=== PATIENT | male | born 1955 | race African-American/Black ===

== ENCOUNTER 2018-01-20 23:54 | Emergency (ER) | payer SELFPAY ==
[2018-01-20 23:55] VITALS: BP 145/106; PULSE 115; RESP 14; TEMP 37.3; O2SAT 95; BMI 21.7
--- NOTE | 2018-01-21 00:05 | ED.DCSUM_ITS ---
- ER Visit Summary Date of Service: 01/21/18 Chief Complaint: Nausea, vomiting History of Present Illness: The patient is a 63 M with no significant medical history presents to the emergency department nausea and vomiting. Significant other was sick with similar symptoms a few days ago. His symptoms started about 3 hours prior to arrival. He states he had some diffuse cramping abdominal pain. Since then, he has had multiple episodes of emesis. There has been no blood in the emesis. He denies any diarrhea. He does admit to some abdominal cramping. He has no history of prior abdominal surgery. The patient takes no daily medications. He denies any fevers or chills. He has not found anything that improves the symptoms. Physical Examination: Vital signs reviewed General: Well-nourished, well-developed Head: Normocephalic, atraumatic Eyes: Pupils equal and reactive, extraocular muscles intact Neck, supple, no lymphadenopathy Heart: Regular rate and rhythm Respiratory: No distress, clear bilaterally Abdomen: Soft, diffusely tender without rebound or guarding, nondistended, no peritoneal signs Back: Nontender Extremities: Nontender, no edema, no cords Skin: Normal color no rash Neuro: Alert and oriented, no focal or lateralizing deficits Test Results: [] Emergency Department Course and Treatment: The patient did have positive sick contacts. He had some diffuse tenderness, but no focal tenderness to palpation. IV was established. Patient was given fluids, analgesics, and antiemetics. He had marked improvement of his symptoms. His repeat exam was soft and nontender. His labs do show mild leukocytosis which I feel is likely reactive. With fluids and medications again his symptoms have resolved. The patient is tolerating oral fluids without issue. The patient will be discharged with Zofran. He was counseled on concerning symptoms and reasons to return. The patient has no primary care physician. He will be referred to next primary care on-call, Dr. Zayas. Treatment Plan: [] Disposition: Discharge Impression:. Nausea and vomiting This note was generated with [employer] dictation software. It may contain incorrect words, spelling, and punctuation that were not noted in review of the chart prior to signing ED Disposition - Plan for ED Patient: Chief Complaint: Nausea/Vomiting Instructions: ED Nausea Vomiting Prescriptions: Ondansetron [Zofran Odt] 4 mg PO Q8H PRN PRN #10 tab PRN Reason: Nausea Referrals: Anselmo Zayas MD [STAFF PHYSICIAN] -
[2018-01-21] MEDS: 0.9% Normal Saline 1,000 ML 1000 ML IV (00:06)
[2018-01-21] MEDS: Ondansetron 4 MG/2 ML Vial IV (00:09)
[2018-01-21 00:16] LABS: Absolute Lymphocyte Count 1.02 X10^3/ul (0.83-4.51); Absolute Neutrophil Count 9.9 X10^3/uL (2.0-7.7); Basophil# 0.01 X10^3/uL; Basophil% 0.1 % (0-1); Eosinophil# 0.01 X10^3/uL; Eosinophils% 0.1 % (0-5); Hematocrit 48.3 % (40-54); Hemoglobin 15.5 g/dl (13.0-16.5); Lymphocyte # 1.02 X10^3/ul (4.0); Lymphocyte % 8.9 % (19-41); Mean Corp Hgb Conc 32.1 g/gl (32-36); Mean Corpuscular Hgb 30.5 pg (27.0-32.0); Mean Corpuscular Volume 95.1 fL (80-94); Mean Platelet Vol. 11.5 fl (6.2-12.0); Monocyte# 0.48 X10^3/uL; Monocyte% 4.2 % (0-10); Neutrophil # 9.94 X10^3/uL (2.7-7.7); Neutrophil % 86.4 % (47-70); Platelet Count 143 K/mm3 (150-450); Red Blood Count 5.08 M/mm3 (4.6-6.2); White Blood Count 11.5 K/mm3 (4.4-11.0)
[2018-01-21 00:20] LABS: POSITIVE COUNT NO; POSITIVE DIFFERENTIAL NO; POSITIVE MORPHOLOGY NO
[2018-01-21 01:11] LABS: ALB/GLOB Ratio 0.9 RATIO (0.9-2.4); AST(SGOT) 22 U/L (15-37); Alanine Aminotransfer ALT/SGPT 22 U/L (16-61); Albumin, Serum 3.8 g/dL (3.2-5.0); Alkaline Phosphatase 60 U/L (45-117); Anion Gap 7 (5-15); BUN 15 mg/dL (7-18); BUN/Creat Ratio 13.4 RATIO (10-20); Chloride 103 mmol/L (98-107); Creatinine, Serum 1.12 mg/dL (0.70-1.30); EST Glomerular Filtration Rate 71 mL/min (>60); Est Glom Filt Rate - Afr Amer 85 mL/min (>60); Estimated Creatinine Clearance 59.23 ml/min; Globulin 4.1 g/dL (2.2-4.2); Glucose 168 mg/dL (74-106); Lipase 66 U/L (73-393); Potassium 4.2 mmol/L (3.5-5.1); Protein, Total 7.9 g/dL (6.4-8.2); Sodium Level 137 mmol/L (136-145)
[2018-01-21] MEDS: Ondansetron ODT 4 MG Tablet PO (01:52)
[2018-01-21 01:53] VITALS: BP 138/94; PULSE 98; RESP 16; O2SAT 95
== END 2018-01-21 01:54 | disposition home or self-care (01) ==
LOC: ED 01-21 00:15
PROVIDERS: Emergency Provider Emergency Medicine
DX: K52.9 Noninfective gastroenteritis and colitis, unspecified (principal); Z72.0 Tobacco use
CPT/HCPCS: 80053; 83690; 85025; 96361; 96374; 96375; 99283; J7030; A4216; J2405

== ENCOUNTER 2023-08-16 21:42 | Emergency (ER) | payer MEDICARE, MEDICAID, SELFPAY ==
[2023-08-16 21:43] VITALS: BP 165/75; PULSE 103; RESP 18; TEMP 36.1; O2SAT 97
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
[2023-08-16] MEDS: Ibuprofen 600 MG Tablet PO (22:09)
[2023-08-16 22:12] VITALS: BMI 26.6
== END 2023-08-16 22:31 | disposition home or self-care (01) ==
PROVIDERS: Emergency Provider Emergency Medicine; PCP Family Medicine; Visit Provider Emergency Medicine
DX: S00.511A Abrasion of lip, initial encounter (principal); S43.52XA Sprain of left acromioclavicular joint, initial encounter; F17.200 Nicotine dependence, unspecified, uncomplicated; V03.10XA Pedestrian on foot injured in collision with car, pick-up truck or van in traffic accident, initial encounter
CPT/HCPCS: 99283

== ENCOUNTER 2023-08-19 09:20 | Emergency (ER) | payer MEDICARE, SELFPAY ==
[2023-08-19 09:21] VITALS: BP 197/99; PULSE 61; RESP 20; TEMP 35.9; O2SAT 100; BMI 22.0
--- NOTE | 2023-08-19 10:07 | RAD_ITS ---
STUDY: X-RAY - RIGHT FOOT CLINICAL: Male, 68 years old. Pain following injury. TECHNIQUE: 3 view(s) of the foot. COMPARISON: None. FINDINGS: Normal talus, calcaneus, and tarsal bones. Normal visualized subtalar, talonavicular, calcaneocuboid, tarsal and tarsometatarsal articulations. Normal metatarsi. There is degenerative arthrosis of the metatarsophalangeal joint of the hallux . Normal tibial and fibular sesamoid bones. Normal interphalangeal joint of the great toe. Normal phalanges of the great toe. Normal second through fifth metatarsophalangeal joints. Normal interphalangeal joints and phalanges of the lesser toes. The soft tissue structures are unremarkable. 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 Electronically Signed: Rico Jean MD at 10:53 EDT ,
--- NOTE | 2023-08-19 10:07 | RAD_ITS ---
STUDY: X-RAY - LEFT FOOT CLINICAL: Male, 68 years old. Pain following injury. TECHNIQUE: 3 view(s) of the foot. COMPARISON: None. FINDINGS: There is a plantar calcaneal spur. Normal visualized subtalar, talonavicular, calcaneocuboid, tarsal and tarsometatarsal articulations. Normal metatarsi. Normal metatarsophalangeal joint of the great toe. Normal tibial and fibular sesamoid bones. Normal interphalangeal joint of the great toe. Normal phalanges of the great toe. Normal second through fifth metatarsophalangeal joints. Normal interphalangeal joints and phalanges of the lesser toes. Soft tissue swelling. RAD/Foot min 3 Views IMPRESSION: Soft tissue swelling. Electronically Signed: Rico Jean MD at 10:52 EDT ,
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
[2023-08-19 11:43] VITALS: BP 138/77; PULSE 68; RESP 15; O2SAT 98
== END 2023-08-19 11:44 | disposition home or self-care (01) ==
PROVIDERS: Emergency Provider Emergency Medicine; PCP Family Medicine; Visit Provider Emergency Medicine
DX: S90.31XA Contusion of right foot, initial encounter (principal); S90.32XA Contusion of left foot, initial encounter; F17.210 Nicotine dependence, cigarettes, uncomplicated; M19.071 Primary osteoarthritis, right ankle and foot; M19.072 Primary osteoarthritis, left ankle and foot; V89.2XXA Person injured in unspecified motor-vehicle accident, traffic, initial encounter
CPT/HCPCS: 73630; 99282

== ENCOUNTER 2024-11-11 18:55 | Emergency (ER) | payer MEDICARE, SELFPAY ==
[2024-11-11 18:57] VITALS: PULSE 68; RESP 16; TEMP 35.8; O2SAT 98; BMI 23.2
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
--- NOTE | 2024-11-11 19:24 | EDS_ITS ---
HPI HPI - Fall History of Present Illness Chief Complaint: Confusion Informant: patient Occured/Mechanism Occurred: Today Mechanism/Context: Yes same level fall Usually ambulates: Without assistance Pain/Injury Pain Location: head Current Severity: Moderate Maximum Severity: Moderate Narrative Narrative: 69-year-old male reportedly no significant past medical or surgical history. Most of the history is from his baby nena which she calls her self. I believe the patient is to another woman and has a is not here. Reportedly patient was drinking today. He had reportedly 4 shots and 3 beers. The woman is with him states she walked outside when she came in he was on the floor. Reportedly people there stated that he fell hit his head. Unsure if he had loss conscious. There was no bleeding. He is reportedly not on no medications is no past medical history. He was brought in by squad and in the squad he threw up. He denies any complaints. He is intoxicated. Patient himself is a limited informant. Prior similar symptoms: No Recent Illness/Hospitalization: No PFSH PFSH Medical History no medical history no medical history Allergy/AdvReac Type Severity Reaction Status Date / Time No Known Allergies Allergy Verified 11/11/24 18:56 Social History Smoking Status: Current every day smoker tobacco type: cigarettes ROS ROS ED ROS Narrative Denies recent illness. Nausea and vomiting night after fall with head injury. Constitutional Constitutional ED: Denies chills or fever(s) Eyes Eyes: Denies blurry vision ENT ENT ED: Denies ear pain Cardiovascular Cardiovascular: Denies chest pain Respiratory/Chest Respiratory/Chest: Denies cough Gastrointestinal Gastrointestinal: Reports nausea and vomiting; Denies abdominal pain Genitourinary Genitourinary ED: Denies dysuria or hematuria Musculoskeletal Musculoskeletal: Denies arthralgias Integumentary Denies abscess Neurologic Neurologic: Denies headache(s) Psychiatric Psychiatric: Denies anxiety Endocrine Endocrinology: Denies polydipsia Hematologic/Lymphatic Hematologic/Lymphatic: Denies easy bleeding Allergic/Immunologic Allergic/Immunologic ED: Denies mouth swelling EXAM Physical Exam Narrative Exam Narrative: 69-year-old male sitting upright in bed. Vital signs are stable he is afebrile. There is a woman at bedside. He is in no distress. He seems intoxicated. H EENT exam pupils round reactive light. Very poor dentition but no acute trauma to his dentition. There is no obvious bruising or swelling to his face. There is no bruising, hematoma or laceration to his scalp. C-spine is nontender. Trachea midline. Lungs clear to auscultation bilaterally. Heart regular rhythm rate about 70 no murmur. Chest wall ribs are nontender. No crepitus. No br uising. Abdomen is soft nondistended. Normal bowel sounds no peritoneal signs. No bruising. Pelvic girdle is intact. He is moving all 4 extremities. 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 Normal dorsi plantarflexion. There is no deformity. No joint tenderness. Neurologically is intoxicated. But he does answer questions he knows he is in the emergency department. Const Vital Signs: 11/11/24 18:57 11/11/24 19:05 11/11/24 19:56 Temperature 96.5 F L Temperature Source Temporal Pulse Rate 68 74 Respiratory Rate 16 16 Respiratory Effort Normal Non-Labored Respiratory Depth Normal Respiratory Pattern Normal Blood Pressure 106/66 Blood Pressure Mean 79 Pulse Ox 98 98 Oxygen Delivery Method Room Air Room Air Room Air Positive well nourished and well developed; Negative for obese, cachectic or contractures General Appearance ED: well developed and NAD; Negative for cachectic or contractures Nutritional Appearance: Negative for cachectic or obese HEENT Reports normocephalic HEENT Narrative: Reported head trauma but no hematoma or laceration. No swelling or bruising. Negative for contusion, hematoma or tenderness Eyes PERRL and EOMs intact bilaterally General Eye ED: Negative for pale conjunctiva or scleral icterus Neck full ROM, no lymphadenopathy and supple General: Negative for tenderness Chest Wall inspection of chest normal and palpation of chest normal Resp normal respiratory effort, no retractions and clear to auscultation bilaterally Auscultation: Negative for rales, rhonchi, wheezes or diminished lung sounds Cardio regular rate, regular rhythm, S1 normal heart sound, S2 normal heart sound and no murmurs GI non-tender, non-distended and no masses Palpation: soft; Negative for guarding or rebound tenderness present Back/Spine no CVA tenderness General Back: Negative for CVA tenderness Cervical Spine: Negative for cervical spine tenderness Lumbar Spine / Lower Back: Negative for lumbar spinal tenderness or paraspinal muscle tenderness Neuro CN's II-XII intact bilaterally, moves all extremities and no focal motor deficits Neuro Narrative: Intoxicated. Knows he is in the ER. Limited informant. Anaid Coma Scale: document GCS findings To Voice Obeys Commands Oriented 14 Sensorium / Orientation: alert, oriented to person and oriented to place Motor Exam: strength 5/5 throughout Psych mental status grossly normal and thought process normal Attitude: No agitated Mood & Affect: Negative for anxious or tearful Skin Lesions: no lesions Rashes: no rashes Trauma: Negative for abrasion, laceration or puncture MDM MDM MDM Narrative Medical decision making narrative: 69-year-old male reportedly no past medical history nor is he on any medications. Reportedly has been drinking today and fell on a bar hitting his head on the floor. CT of his head and neck will be obtained. Screening labs and alcohol level. He will be given IV Zofran. Currently is awake and alert. He is answering questions. Following commands. There is no signs of trauma to his chest, abdomen, back arms or legs. Prior to patient being discharged around 8:50 PM. He tore out his IV. He and his significant other that was with him walked out. Nurses were able to eat him to come back and I went over his test results with him. And then he walked out. He did not wait for his discharge instructions. The woman it was with him said that he would be able to watch over in the night. The understanding is significantly intoxicated. History & Record Review Discussion w/independent historian: Patient and Friend Additional record(s) reviewed:: Prior inpatient record, Prior outpatient record, Prior ED visit and Prior labs Lab Data Attestation: I reviewed the patient's lab results. Lab results narrative: CBC shows white count of 6. H&H 11.4 and 35.6. Platelets 124. Electrolytes show potassium of 3.1. Gap 10. Normal BUN of 16 creatinine 0.7. Glucose 107. His alcohol level was 316. Labs: Laboratory Results - last 24 hr 11/11/24 19:26 WBC 6.0 RBC 3.63 L Hgb 11.4 L Hct 35.6 L MCV 98.1 H MCH 31.4 MCHC 32.0 RDW Std Deviation 51.6 H RDW Coeff of Daren 14.4 Plt Count 124 L MPV 10.3 Immature Gran % (Auto) 0.300 Neut % (Auto) 53.7 Lymph % (Auto) 31.0 [place] % (Auto) 11.2 H Eos % (Auto) 3.5 Baso % (Auto) 0.3 Absolute Neuts (auto) 3.2 Absolute Lymphs (auto) 1.85 Nucleated RBC % 0 Sodium 139 Potassium 3.1 L Chloride 107 Carbon Dioxide 22.0 Anion Gap 10 BUN 16 Creatinine 0.74 Estim Creat Clear Calc 74.00 Est GFR (MDRD) Af Amer 134 Est GFR (MDRD) Non-Af 111 BUN/Creatinine Ratio 21.5 H Glucose 107 H Calcium 8.7 Ethyl Alcohol 316.0 H* Radiography Diagnostic Testing: Clinical Impression(s) from Imaging Studies Brain CT 11/11/24 19:15 IMPRESSION: No acute intracranial pathology of the brain. Paranasal sinus disease. Electronically Signed: Nelson Morrissey DO at 20:14 EST , Cervical Spine CT 11/11/24 19:16 IMPRESSION: Degenerative changes of the cervical spine. Electronically Signed: Nelson Morrissey DO at 20:22 EST , Discharge Plan Triage Chief Complaint: Confusion Other Complaint: ETOH Intox Fall ED Provider: Lee Muir Dx/Rx/DC Orders Clinical Impression: Fall, Closed head injury, Acute alcohol intoxication Instructions: ED Alcohol Intoxication, ED Head Injury (Adult) Primary Care Provider: Austen Jean Referrals: Austen Jean MD [Primary Care Provider] - 3-5 Days if not improving Activity Restrictions/Additional Instructions: Ice all sore areas. No alcohol next 24 hours. Strongly consider alcohol counseling or detox. Follow-up with your doctor if not improving or feeling worse. Or return. No driving next 24 hours Print Language: Italian Disposition Disposition: Home, Self Care
[2024-11-11 19:34] LABS: Absolute Lymphocyte Count 1.85 X10^3/uL (0.83-4.51); Absolute Neutrophil Count 3.2 X10^3/uL (2.0-7.7); Basophil# 0.02 X10^3/uL; Basophil% 0.3 % (0-1); Eosinophil# 0.21 X10^3/uL; Eosinophils% 3.5 % (0-5); Hematocrit 35.6 % (40-54); Hemoglobin 11.4 g/dL (13.0-16.5); Lymphocyte # 1.85 X10^3/ul (0.83-4.51); Mean Corpuscular Hgb 31.4 pg (27.0-32.0); Mean Corpuscular Volume 98.1 fL (80-94); Mean Platelet Vol. 10.3 fl (6.2-12.0); Monocyte# 0.67 X10^3/uL; Monocyte% 11.2 % (0-10); NRBC Flagged by Analyzer 0 % (0-5); Neutrophil # 3.19 X10^3/uL (2.7-7.7); Neutrophil % 53.7 % (47-70); Platelet Count 124 K/mm3 (150-450); RBC Distribution Width CV 14.4 % (11.6-14.6); RBC Distribution Width SD 51.6 fl (35.1-43.9); Red Blood Count 3.63 M/mm3 (4.6-6.2)
[2024-11-11 19:48] LABS: Anion Gap 10 (5-15); BUN 16 mg/dL (7-18); BUN/Creat Ratio 21.5 RATIO (10-20); Calcium,Total 8.7 mg/dL (8.5-10.1); Chloride 107 mmol/L (98-107); Creatinine, Serum 0.74 mg/dL (0.70-1.30); EST Glomerular Filtration Rate 111 mL/min (>60); Est Glom Filt Rate - Afr Amer 134 mL/min (>60); Glucose 107 mg/dL (74-106); Potassium 3.1 mmol/L (3.5-5.1); Sodium Level 139 mmol/L (136-145)
[2024-11-11 19:56] VITALS: BP 106/66; PULSE 74; RESP 16; O2SAT 98
[2024-11-11] MEDS: Ondansetron 4 MG/2 ML Vial IV (19:59)
--- NOTE | 2024-11-11 20:53 | ED.RN ---
pts room noted to be empty when this rn came back from lunch. pt noted to be leaning against the wall outside of squad entrance. pts arm checked for IV. IV noted to be on the side of the bed. pt left without receiving dc instructions.
== END 2024-11-11 21:19 | disposition home or self-care (01) ==
PROVIDERS: Emergency Provider Emergency Medicine; PCP Family Medicine; Visit Provider Emergency Medicine
DX: S09.90XA Unspecified injury of head, initial encounter (principal); F10.129 Alcohol abuse with intoxication, unspecified; F17.210 Nicotine dependence, cigarettes, uncomplicated; W19.XXXA Unspecified fall, initial encounter
CPT/HCPCS: 70450; 72125; 80048; 82077; 85025; 96374; 99285; A4216; J2405

== ENCOUNTER 2025-07-20 03:27 | Emergency (ER) | payer MEDICARE, SELFPAY ==
[2025-07-20 03:28] VITALS: BP 232/119; PULSE 75; RESP 18; TEMP 36.5; O2SAT 96; BMI 21.8
--- NOTE | 2025-07-20 03:33 | EDS_ITS ---
HPI HPI - GI History of Present Illness Chief Complaint: Flank Pain Informant: patient and EMS Narrative Narrative: Patient presents by EMS at 338 for pain in her right flank that started suddenly severe this past day when he was sitting at home resting, seem to come out of nowhere. Has not been colicky. Hurts worse when he moves or tries to stand. Better when he rests. No nausea or vomiting. States that hurts severely and seem to take his breath away but denies dyspnea. He has had a mild cough recently no fevers or chills. Pain does not radiate anywhere or go into his back. No urinary symptoms no history of kidney stones that he knows of no history of abdominal surgeries in the past. PFSH PFSH Medical History no medical history Home Medications ?Medication ?Instructions ?Recorded ?Last Taken ?Type amlodipine 10 mg tablet 10 mg PO DAILY #30 tabs 06/25 06/17 Unknown Rx dicyclomine 20 mg tablet 20 mg PO Q6H PRN PRN abdomin al 07/20/25 Unknown Rx discomfort #20 tabs Allergy/AdvReac Type Severity Reaction Status Date / Time No Known Allergies Allergy Verified 07/20/25 03:28 Family History no significant family his Surgical History no surgical history Social History Smoking Status: Current every day smoker tobacco type: cigarettes ROS ROS ED Constitutional Constitutional ED: Denies chills or fever(s) Eyes Eyes: Denies change in vision or diplopia ENT ENT ED: Denies rhinorrhea or sore throat Cardiovascular Cardiovascular: Denies chest pain or palpitations Respiratory/Chest Respiratory/Chest: Denies cough or dyspnea Gastrointestinal Gastrointestinal: Reports abdominal pain; Denies diarrhea, nausea or vomiting Genitourinary Genitourinary ED: Reports flank pain; Denies dysuria, hematuria or low back pain Musculoskeletal Musculoskeletal: Denies back pain or neck pain Integumentary Denies abscess or rash Neurologic Neurologic: Denies headache(s), paresthesias or weakness Psychiatric Psychiatric: Denies suicidal thoughts EXAM Physical Exam Const Vital Signs: 07/20/25 03:28 07/20/25 03:38 07/20/25 03:43 Temperature 97.7 F L Temperature Source Oral Pulse Rate 75 Respiratory Rate 18 Respiratory Effort Normal Non-Labored Respiratory Pattern Normal Blood Pressure 232/119 H 223/113 H Blood Pressure Mean 156 149 Pulse Ox 96 Oxygen Delivery Method Room Air 07/20/25 04:15 07/20/25 04:45 Temperature Temperature Source Pulse Rate 66 61 Respiratory Rate 18 18 Respiratory Effort Respiratory Pattern Blood Pressure 204/99 H 237/87 H Blood Pressure Mean 134 137 Pulse Ox 96 98 Oxygen Delivery Method Room Air Room Air Positive well nourished and well developed Constitutional Narrative: Uncomfortable but in no distress. Winces when EMS moves patient to the bed. General Appearance ED: well developed and NAD HEENT Reports moist mucous membranes normocephalic and atraumatic Eyes PERRL and EOMs intact bilaterally Neck full ROM and supple Resp normal respiratory effort and clear to auscultation bilaterally Cardio regular rate, regular rhythm and no murmurs GI non-distended GI Narrative: Very mild medial right upper quadrant tenderness, patient is not having pain here. In the right flank where he is having pain, there is no reproducible tenderness or anywhere else in the abdomen/pelvis. No distention. Auscultation: normoactive bowel sounds Palpation: soft Back/Spine no CVA tenderness General Back: other FROM Extremity normal to inspection General Extremety ED: Negative for edema, pulses abnormal or tenderness General Extremity: Negative for edema or pulses abnormal Neuro oriented x3, CN's II-XII intact bilaterally and no sensory deficits noted Sensorium / Orientation: awake and alert Motor Exam: strength 5/5 throughout Skin no rashes or lesions noted and no wounds MDM MDM MDM Narrative Medical decision making narrative: Differential includes kidney stone, pyelonephritis, atypical appendicitis, atypical cholecystitis, other GI/bowel related pain, lower lobe pneumonia. His labs including liver enzymes are normal, his urinalysis is normal except for mild proteinuria, and CT of the abdomen and pelvis shows no acute abnormalities I reviewed the images and the result which I agree with. It does say that he has a lot of colonic stool present; I see no lower lobe infiltrates. I reevaluated patient after treating him with morphine and Zofran, he is feeling a lot better he states the discomfort is barely there. Really was not that tender, it is possible constipation could be causing this. I asked him he states he has not been really constipated recently. Is possible that his pain will resolve after he has a good bowel movement, so I am going to prescribe him dicyclomine to use as needed for the pain but I feel he can be safely discharged home given all of this. I recommended he follow-up shortly if the pain does not resolve. My almost bigger concern is his blood pressure. He has been as high as 232/119, his I am evaluating him right now he is at 199 over about 100. I asked him about this, I states last time he had his blood pressure measured before coming to the ER today was a long time ago. When asked who his PCP is, he states it is on the back of my insurance card, I do not know. He has not seen a physician in a long time definitely does not see anyone regularly. I suspect that since he has blood pressure that is this high and is asymptomatic, that it is not acute or new. I am going to start him on amlodipine and prescribed him the dicyclomine and advised that he follow-up with soon as possible. Lab Data Attestation: I reviewed the patient's lab results. Labs: Laboratory Results - last 24 hr 07/20/25 07/20/25 03:39 04:49 WBC 5.0 RBC 3.99 L Hgb 12.4 L Hct 38.8 L MCV 97.2 H MCH 31.1 MCHC 32.0 RDW Std Deviation 52.3 H RDW Coeff of Daren 14.5 Plt Count 148 L MPV 10.0 Immature Gran % (Auto) 0.400 Neut % (Auto) 53.2 Lymph % (Auto) 28.9 [place] % (Auto) 12.9 H Eos % (Auto) 4.4 Baso % (Auto) 0.2 Absolute Neuts (auto) 2.7 Absolute Lymphs (auto) 1.44 Nucleated RBC % 0 Sodium 141 Potassium 4.2 Chloride 106 Carbon Dioxide 22.8 Anion Gap 12 BUN 19 Creatinine 0.87 Estim Creat Clear Calc 67.55 Est GFR (MDRD) Non-Af 93 BUN/Creatinine Ratio 21.7 H Glucose 113 H Calcium 9.3 Total Bilirubin 0.34 AST 20 ALT 13 Alkaline Phosphatase 62 Total Protein 7.5 Albumin 3.9 Globulin 3.5 Albumin/Globulin Ratio 1.1 Urine Color Yellow Urine Clarity Clear Urine pH 6.0 Ur Specific [place] 1.020 Urine Protein 15 H Urine Glucose (UA) Normal Urine Ketones 5 H Urine Occult Blood Negative Urine Nitrite Negative Urine Bilirubin Negative Urine Urobilinogen Normal Ur Leukocyte Esterase Negative Radiography Diagnostic Testing: Clinical Impression(s) from Imaging Studies Abdomen/Pelvis CT 07/20/25 03:55 IMPRESSION: No renal calculi. No hydronephrosis. The appendix is not clearly identified. Advise sonography correlation, if clinically warranted. Colonic fecal loading and gaseous distension. Fluid and gaseous small bowel loops, possibly non specific versus mild enteritis. Reading Location: [place] [id number] Discharge Plan Triage Chief Complaint: Flank Pain ED Provider: Sergey Pearson Dx/Rx/DC Orders Clinical Impression: Right sided abdominal pain, Constipation, Hypertension, Proteinuria Instructions: Abdominal Pain, ED Constipation (Adult) Prescriptions: New dicyclomine 20 mg tablet 20 mg PO Q6H PRN PRN (Reason: abdominal discomfort) Qty: 20 0RF amlodipine 10 mg tablet 10 mg PO DAILY Qty: 30 0RF Primary Care Provider: Austen Jean Referrals: Austen Jean MD [Primary Care Provider] - As soon as possible Print Language: [place]i Disposition Disposition: Home, Self Care
[2025-07-20 03:43] VITALS: BP 223/113
[2025-07-20 03:49] LABS: Hematocrit 38.8 % (40-54); Hemoglobin 12.4 g/dL (13.0-16.5); Immature Granulocytes Count 0.020 X10^3/uL (0.0-0.0); Mean Corp Hgb Conc 32.0 g/dL (32-36); Mean Corpuscular Volume 97.2 fL (80-94); Mean Platelet Vol. 10.0 fl (6.2-12.0); NRBC Flagged by Analyzer 0 % (0-5); Platelet Count 148 K/mm3 (150-450); RBC Distribution Width CV 14.5 % (11.6-14.6); RBC Distribution Width SD 52.3 fl (35.1-43.9); Red Blood Count 3.99 M/mm3 (4.6-6.2); White Blood Count 5.0 K/mm3 (4.4-11.0)
--- NOTE | 2025-07-20 03:55 | CT_ITS ---
PROCEDURE: ABDOMEN/PELVIS WITHOUT CONT 07/20/2025 REASON FOR EXAM: R FLANK PAIN TECHNIQUE: ABDOMEN/PELVIS WITHOUT CONT Noncontrast technique limits evaluation of the abdominal and pelvic viscera. Coronal and Sagittal reconstruction series were provided. One or more dose reduction techniques were used (e.g., Automated exposure control, adjustment of the mA and/or kV according to patient size, use of iterative reconstruction technique). RADIATION DOSE SUMMARY: CTDlvol: 6.04 mGy DLP: 308 mGycm COMPARISON: none FINDINGS: Suboptimal examination quality due to respiratory motion artifact. Average sized liver showing homogenous parenchymal attenuation. No dilated intra or extra-hepatic biliary tracts. Gall bladder showing no radiodense calculi. Normal unenhanced appearance of the pancreas with clear surrounding fat planes. The unenhanced spleen, adrenal glands and IVC are unremarkable. Vascular atheromatous calcifications. Both kidneys are of average size and showing smooth outline with preserved parenchymal thickness. No renal calculi. No hydronephrosis. Bilateral renal hypodense cortical cysts. Distension of the urinary bladder showing minimal uniform mural thickening with no obvious masses. Mildly enlarged prostate. The appendix is not clearly identified Colonic fecal loading and gaseous distension. Fluid and gaseous small bowel loops are noted The stomach is unremarkable. No ascites or free air. No obvious pathologically enlarged lymph nodes. Scanned osseous structures show no osseous destruction. Thoracolumbar spondylosis. Scanned lung bases show basal atelectatic changes. CT/Abdomen/Pelvis without Cont IMPRESSION: No renal calculi. No hydronephrosis. The appendix is not clearly identified. Advise sonography correlation, if clini mikhail warranted. Colonic fecal loading and gaseous distension. Fluid and gaseous small bowel loops, possibly non specific versus mild enteriti s. Reading [facility]
[2025-07-20 04:07] LABS: AST(SGOT) 20 U/L (<=37); Alanine Aminotransfer ALT/SGPT 13 U/L (<=46); Albumin, Serum 3.9 g/dL (3.4-4.8); Alkaline Phosphatase 62 U/L (40-129); Anion Gap 12 (5-15); BUN 19 mg/dL (4-19); BUN/Creat Ratio 21.7 RATIO (10-20); Calcium,Total 9.3 mg/dL (7.6-11.0); Carbon Dioxide 22.8 mmol/L (21.0-32.0); Chloride 106 mmol/L (98-108); Estimated Creatinine Clearance 67.55 ml/min (50-250); Globulin 3.5 g/dL (2.2-4.2); Glucose 113 mg/dL (70-99); Potassium 4.2 mmol/L (3.3-5.1)
[2025-07-20 04:15] VITALS: BP 204/99; PULSE 66; RESP 18; O2SAT 96
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
[2025-07-20 04:45] VITALS: BP 237/87; PULSE 61; RESP 18; O2SAT 98
[2025-07-20 04:58] LABS: Mucous, Urine 0 SEEN /hpf (<or=2+); Red Blood Cells-Urine 0 SEEN /hpf (0-5)
[2025-07-20 05:03] LABS: Color, Urine Yellow (Yellow); Glucose, Dipstick Normal (Normal); Ketone-Dipstick 5 mg/dl (Negative); Leukocyte Esterase-Dipstick Negative /ul (Negative); Nitrite-Dipstick Negative (Negative); Occult Blood-Urine Negative /ul (Negative); Protein-Dipstick 15 mg/dl (Negative); Specific Gravity, Urine 1.020 (1.002-1.030); Urine Bilirubin Dipstick Negative (Negative)
[2025-07-20 05:29] VITALS: BP 199/97; PULSE 66; RESP 18; TEMP 36.6; O2SAT 97
[2025-07-20 05:39] LABS: Squamous Epithelial Cells - UA 0-5 SEEN /hpf (0-5)
== END 2025-07-20 05:30 | disposition home or self-care (01) ==
PROVIDERS: Emergency Provider Emergency Medicine; PCP Family Medicine; Visit Provider Emergency Medicine
DX: R10.9 Unspecified abdominal pain (principal); K59.00 Constipation, unspecified; I10 Essential (primary) hypertension; R80.9 Proteinuria, unspecified; F17.210 Nicotine dependence, cigarettes, uncomplicated
CPT/HCPCS: 74176; 80053; 81001; 85025; 96374; 96375; 96376; 99285; A4216; J2405